=== PATIENT | male | born 1990 | race African-American/Black ===

== ENCOUNTER 2020-10-31 03:51 | Emergency (ER) | payer OTHER ==
[2020-10-31] MEDS ORDERED: Morphine 4 MG/ML VIAL ONE (04:13)
[2020-10-31] MEDS ORDERED: Ketorolac Tromethamine 30 MG/ML VIAL ONE (04:13)
[2020-10-31] MEDS ORDERED: PROPOFOL 20 ML ONE ×2 (04:21→04:44)
[2020-10-31] MEDS ORDERED: Ketamine 50 MG/ML (10ML VIAL) ONE ×2 (05:09)
== END 2020-10-31 08:13 | disposition home or self-care (01) ==
LOC: MADERS 03:51
DX: S43.015A Anterior dislocation of left humerus, initial encounter (principal); F17.220 Nicotine dependence, chewing tobacco, uncomplicated; X58.XXXA Exposure to other specified factors, initial encounter
CPT/HCPCS: 23650; 96374; 99152; J1885; J2270; J2704